=== PATIENT | male | born 1965 | race Two or more races ===

== ENCOUNTER 2019-11-23 11:00 | Inpatient (IN) | payer OTHER ==
[~2019-11-23] VITALS: Ht 167.6 cm; Wt 64.4 kg
[2019-11-23] MEDS ORDERED: LOVAZA1 GM PO (14:03)
[2019-11-23] MEDS ORDERED: GLEEVEC400 MG PO (14:05)
[2019-11-23] MEDS ORDERED: SIMVASTATIN5 MG PO (14:05)
== END 2019-12-06 17:18 | disposition home or self-care (01) | DRG 330 ==
LOC: O/R 11-30 09:19 → SURH 11-30 11:00
PROVIDERS: ADMIT Colon & Rectal Surgery; ATTEND Colon & Rectal Surgery
PROC: 0DBN4ZZ Excision of Sigmoid Colon, Percutaneous Endoscopic Approach (ICD-10-PCS; 2019-11-30)
PROC: 0TQB3ZZ Repair Bladder, Percutaneous Approach (ICD-10-PCS; 2019-11-30)
PROC: 0DUU47Z Supplement Omentum with Autologous Tissue Substitute, Percutaneous Endoscopic Approach (ICD-10-PCS; 2019-11-30)
PROC: 0DJD8ZZ Inspection of Lower Intestinal Tract, Via Natural or Artificial Opening Endoscopic (ICD-10-PCS; 2019-11-30)
PROC: 0DTP4ZZ Resection of Rectum, Percutaneous Endoscopic Approach (ICD-10-PCS; principal; 2019-11-30 13:45)
DX: K57.30 Diverticulosis of large intestine without perforation or abscess without bleeding (principal); N32.1 Vesicointestinal fistula

== ENCOUNTER 2021-01-05 06:20 | Day surgery (SDC) | payer OTHER ==
[~2021-01-05 06:20] MED LIST: GLEEVEC400 MG PO; LOVAZA1 GM PO; SIMVASTATIN5 MG PO
== END 2021-01-05 12:15 | disposition home or self-care (01) ==
LOC: AMB-ENDOS 06:20
PROVIDERS: ATTEND Colon & Rectal Surgery
DX: K57.32 Diverticulitis of large intestine without perforation or abscess without bleeding (principal); K64.0 First degree hemorrhoids; Z20.822 Contact with and (suspected) exposure to COVID-19